=== PATIENT | female | born 1965 | race Caucasian/White ===

== ENCOUNTER → 2024-06-18 09:12 | Outpatient (REF) | payer OTHER, SELFPAY | LOC: WDC 09:12 | PROVIDERS: ATTENDING PHYSICIAN Obstetrics & Gynecology; FAMILY PHYSICIAN Family Medicine | DX: R92.2 Inconclusive mammogram (principal); Z12.31 Encounter for screening mammogram for malignant neoplasm of breast | CPT/HCPCS: 76641; 77063; 77067 ==

== ENCOUNTER → 2025-06-23 08:21 | Outpatient (REF) | payer OTHER, SELFPAY | LOC: HWWDC 08:21 | PROVIDERS: ATTENDING PHYSICIAN Obstetrics & Gynecology; FAMILY PHYSICIAN Family Medicine | DX: Z12.31 Encounter for screening mammogram for malignant neoplasm of breast (principal) | CPT/HCPCS: 77063; 77067 ==